=== PATIENT | female | born 1985 ===

== ENCOUNTER 2023-11-28 10:38 | Emergency (ER) | payer SELFPAY ==
[2023-11-28 10:47] VITALS: BP 118/75; PULSE 73; RESP 16; TEMP 36.9; O2SAT 100
--- NOTE | 2023-11-28 11:14 | ED.FEMALEGU ---
HPI - Female Genitourinary General Chief complaint: Urogenital-Female Stated complaint: Urinary Problem Time Seen by Provider: 11/28/23 11:05 Source: patient, RN notes reviewed ( speaks turkish well, but court interpreter used for visit.) and court interpreter Mode of arrival: ambulatory Limitations: no limitations History of Present Illness HPI Narrative: Patient presents today complaining of a 3 day history of a urgency, incomplete bladder emptying, left sided suprapubic/lower quadrant pain, with dysuria that started yesterday. She also reports her urine has been dark. Denies hematuria, fever. She has tried some [id number] patches still without relief. Related Data Allergies Allergy/AdvReac Type Severity Reaction Status Date / Time No Known Allergies Allergy Verified 11/28/23 11:08 Review of Systems Review of Systems: CONSTITUTIONAL: Denies body aches, fever, chills, or sweats. EYES: Denies visual changes, redness, or discharge. ENT: Denies rhinorrhea, congestion, sore throat, or otalgia. CARDIOVASCULAR: Denies chest pain, palpitations, or edema. RESPIRATORY: Denies cough or dyspnea. GASTROINTESTINAL: Denies nausea, vomiting, or diarrhea. GENITOURINARY: + dysuria, urgency, lower abdominal discomfort SKIN: Denies rash, itching, or wounds. MUSCULOSKELETAL: Denies back pain, joint pain, or myalgia. NEUROLOGIC: Denies headache, numbness, tingling, or weakness. PSYCH: Denies depression or anxiety. PMFSH Comments At time of signature, I have reviewed and agree with nursing past medical, surgical, social and family history unless otherwise noted. Please see nursing chart for further information. There is no relevant family history pertinent to the presenting complaint Exam Narrative: GENERAL: Well-appearing, well-nourished, and in no acute distress. HEAD: Normocephalic, atraumatic. EYES: EOMI. No redness or drainage. Conjunctivae normal. ENT: Mucous membranes pink and moist. NECK: Normal AROM. CHEST: No respiratory distress. EXTREMITIES: Normal range of motion. No edema. SKIN: Warm, dry, no rash. Capillary refill normal. Normal skin turgor. NEURO: No focal deficits. Alert and oriented x3. Gait steady. PSYCH: Normal affect. No signs of depression or anxiety. Course Course Level of Care: Express Care Visit Vital Signs Vital signs: Vital Signs Temperature 98.5 F 11/28/23 10:47 Pulse Rate 73 11/28/23 10:47 Respiratory Rate 16 11/28/23 10:47 Blood Pressure 118/75 11/28/23 10:47 Pulse Oximetry 100 11/28/23 10:47 Oxygen Delivery Room Air 11/28/23 10:47 Temperature 98.5 F 11/28/23 10:47 Pulse Rate 73 11/28/23 10:47 Respiratory Rate 16 11/28/23 10:47 Blood Pressure 118/75 11/28/23 10:47 Pulse Oximetry 100 11/28/23 10:47 Oxygen Delivery Room Air 11/28/23 10:47 Reviewed MDM - Female Genitourinary MDM Narrative Medical decision making narrative: Urinalysis is consistent with UTI. Prescription for Keflex sent to pharmacy. Urine culture pending. Anticipatory guidance given. Differential Diagnosis Differential diagnosis: Likely urinary tract infection, vaginitis and cystitis Lab Data Attestation: I reviewed the patient's lab results. Labs: Urine Glucose Negative Reference Range: Negative Urine Bilirubin Negative Reference Range: Negative Urine Ketone Negative Reference Range: Negative Urine Specific Pinon 1.015 Reference Range:1.001-1.035 Urine Blood Trace Reference Range: Negative * * Urine pH 6.5 *
== END 2023-11-28 11:32 | disposition home or self-care (01) ==
PROVIDERS: Emergency Provider Nurse Practitioner
DX: N30.01 Acute cystitis with hematuria (principal)
CPT/HCPCS: 81003; 87086; 99213; G0463

== ENCOUNTER 2023-12-24 10:05 | Emergency (ER) | payer SELFPAY ==
[2023-12-24 10:18] VITALS: BP 134/73; PULSE 85; RESP 20; TEMP 37.1; O2SAT 100
--- NOTE | 2023-12-24 10:23 | ED.FEMALEGU ---
HPI - Female Genitourinary General Chief complaint: Urogenital-Female Stated complaint: Lowr back pain/headache/touchy Time Seen by Provider: 12/24/23 10:33 Source: patient and RN notes reviewed Mode of arrival: ambulatory Limitations: no limitations History of Present Illness HPI Narrative: 38-year-old female presented for complaint of burning with urination, right lower abdominal pain and bilateral flank pain worsening over the past few days. Also reports subjective fever and chills. Patient was treated for UTI 1 month ago but states symptoms did not improve. Patient has taken several Tylenol without improvement today. Pain is causing her difficulty walking and breathing. LMP 11/25, actively trying to conceive. Related Data Home Medications Medication Instructions Recorded Confirmed No Home Medications 12/24/23 12/24/23 Allergies Allergy/AdvReac Type Severity Reaction Status Date / Time No Known Allergies Allergy Verified 12/24/23 10:30 Review of Systems Review of Systems: CONSTITUTIONAL: Denies body aches, fever, chills, or sweats. CARDIOVASCULAR: Denies chest pain, palpitations, or edema. RESPIRATORY: Denies cough or dyspnea. GASTROINTESTINAL: Denies abdominal pain, nausea, vomiting, or diarrhea. GENITOURINARY: Reports dysuria, flank pain SKIN: Denies rash, itching, or wounds. MUSCULOSKELETAL: reports back pain, myalgia. PMFSH Comments At time of signature, I have reviewed and agree with nursing past medical, surgical, social and family history unless otherwise noted. Please see nursing chart for further information. There is no relevant family history pertinent to the presenting complaint Exam Narrative: GENERAL: mildly ill-appearing ENT: Mucous membranes pink and moist. CHEST: No respiratory distress. Clear to auscultation. HEART: Regular rate and rhythm. ABDOMEN: Soft, nondistended, normal active bowel sounds. Bilateral CVA tenderness, RLQ tender with palpation SKIN: Warm, dry, no rash. NEURO: No focal deficits. Alert and oriented x3. Gait steady. PSYCH: Normal affect. Course Course Emergency Course: Patient is aware of diagnosis, understands and agrees to treatment plan. Anticipatory guidance given. Patient agrees to follow-up as directed and is aware of reasons to seek care at the emergency department. Portions of this record may have been created with voice recognition software Level of Care: Express Care Visit Vital Signs Vital signs: Vital Signs Temperature 98.7 F 12/24/23 10:18 Pulse Rate 85 12/24/23 10:18 Respiratory Rate 20 12/24/23 10:18 Blood Pressure 134/73 12/24/23 10:18 Pulse Oximetry 100 12/24/23 10:18 Oxygen Delivery Room Air 12/24/23 10:18 Temperature 98.7 F 12/24/23 10:18 Pulse Rate 85 12/24/23 10:18 Respiratory Rate 20 12/24/23 10:18 Blood Pressure 134/73 12/24/23 10:18 Pulse Oximetry 100 12/24/23 10:18 Oxygen Delivery Room Air 12/24/23 10:18 Reviewed Transfer Transfered to: [facility] ([place]) Transportation: Other (private vehicle) Transfer rationale: Pt is agreeable to transfer. Requests transfer to [facility] via private vehicle/ ambulance. Risks of transportation reviewed with pt including injury, worsening of condition and . v/u. will be driving pt; Report called to hospital, spoke with Latoya SCHAFER, Dr Duggan, accepting physician. Pt is in stable condition at time of transfer. Advised to remain NPO and go directly to the hospital. MDM - Female Genitourinary MDM Narrative Medical decision making narrative: Results of urine dip reviewed with patient, however given her abdominal pain, flank pain She is advised ER transfer. Differential Diagnosis Differential diagnosis: Likely urinary tract infection, vaginitis and cystitis Discharge Plan Discharge Clinical Impression: Urinary tract infection Patient Disposition: Acute Care Hospital Condition: Stable
== END 2023-12-24 10:50 | disposition short-term general hospital (02) ==
PROVIDERS: Emergency Provider Nurse Practitioner Family
DX: N39.0 Urinary tract infection, site not specified (principal); B96.20 Unspecified Escherichia coli [E. coli] as the cause of diseases classified elsewhere
CPT/HCPCS: 81003; 81025; 87077; 87086; 87088; 87186; 99213; G0463